=== PATIENT | female | born 1985 | race Two or more races ===

== ENCOUNTER → 2024-02-22 | Outpatient (CLI) | payer MEDICAID, SELFPAY ==
--- NOTE | 2024-02-22 13:30 | XR_ITS ---
Examination: Abdomen sonogram, Limited Date and time of exam: February 22, 2024 at 1401 hours INDICATIONS: Elevated liver function tests on laboratory examination performed 4 months ago Technique: Real-time montez scale transabdominal sonographic images of the upper abdomen obtained. Findings: Normal gallbladder Normal common bile duct 0.3 cm Pancreatic head 2.7 cm Liver 15.3 cm fatty infiltration smooth contour no focal liver lesions Normal hepatopedal portal venous oh Patent IVC IMPRESSION: Normal gallbladder Liver normal size, fatty liver no focal liver lesions
== END | disposition home or self-care (01) ==
PROVIDERS: PCP Nurse Practitioner Family; Referring Provider Nurse Practitioner Family; Visit Provider Nurse Practitioner Family
DX: K76.0 Fatty (change of) liver, not elsewhere classified (principal)
CPT/HCPCS: 76705

== ENCOUNTER → 2024-11-06 | Outpatient (CLI) | payer MEDICAID, SELFPAY ==
--- NOTE | 2024-11-06 09:30 | XR_ITS ---
Examination: Screening digital mammography, bilateral Computer aided detection 3-D breast Tomosynthesis, bilateral Date and time of exam: November 06, 2024 0913 hours No priors Indication: Screening Technique: Nonmagnified MLO, CC views of the breasts to been obtained, reconstructed from 3-D Tomosynthesis images. R2 computer aided detection program utilized for evaluation of suspicious masses and/or abnormal calcifications. 3-D Tomosynthesis images obtained. Findings: The breasts are heterogeneously dense, which may obscure small masses 16 mm focal asymmetry 12:00 position left breast No suspicious microcalcifications Impression: BI-RADS Category 0: Incomplete: Need additional imaging evaluation Recommend follow-up sonogram tomographic views of 16 mm focal asymmetry 12:00 position left breast as well as bilateral breast sonography to complete the workup
== END | disposition home or self-care (01) ==
LOC: CDIM 09:02
PROVIDERS: Referring Provider Nurse Practitioner Family; Visit Provider Nurse Practitioner Family
DX: Z12.31 Encounter for screening mammogram for malignant neoplasm of breast (principal); N64.89 Other specified disorders of breast
CPT/HCPCS: 77063; 77067

== ENCOUNTER → 2025-01-26 | Outpatient (CLI) | payer MEDICAID, SELFPAY ==
--- NOTE | 2025-01-26 10:00 | XR_ITS ---
Examination: Breast ultrasound complete, bilateral Date and time of exam: January 26, 2025, 0949 hours INDICATIONS: Mammogram 11/07/1999 2516 mm focal asymmetry left breast 12 o'clock position Technique: Real-time grayscale ultrasonographic imaging bilateral breasts, including all 4 quadrants as well as nipple retroareolar and axillary regions. Findings: Sonographic images right and left breast demonstrate no cystic or solid masses Bilateral enlarged axillary lymph nodes IMPRESSION: Multiple bilateral enlarged axillary lymph nodes, consider CT chest post intravenous contrast follow-up Recommend 3-month bilateral breast sonography follow-up
--- NOTE | 2025-01-26 11:00 | XR_ITS ---
Examination: Diagnostic digital mammography, unilateral, left Computer aided detection 3-D breast Tomosynthesis, unilateral Date and time of exam: 01/26/2025, 10:03 a.m. Comparisons: 11/06/2024 Indications: Further evaluation of abnormality seen on screening mammogram. Technique: Nonmagnified MLO, CC views of the left breast have been obtained, reconstructed from 3-D Tomosynthesis images. R2 computer aided detection program utilized for evaluation of suspicious masses and/or abnormal calcifications. 3-D Tomosynthesis images obtained. Technologist: Findings: There are scattered areas of fibroglandular density. No evidence of abnormal masses or suspicious calcifications. The previously described abnormality does not persist on spot compression views and represents superimposition of normal fibroglandular tissue. Prominent bilateral axillary lymph nodes seen on ultrasound exam. Overall findings are probably benign. Recommend 3-month bilateral breast ultrasound follow-up. Impression: BI-RADS category 3: Probably benign, short term follow-up
== END | disposition home or self-care (01) ==
PROVIDERS: PCP Nurse Practitioner Family; Referring Provider Nurse Practitioner Family; Visit Provider Nurse Practitioner Family
DX: R92.332 Mammographic heterogeneous density, left breast (principal); R59.0 Localized enlarged lymph nodes
CPT/HCPCS: 76641; 77061; 77065; G0279